=== PATIENT | female | born 1950 | race Caucasian/White ===

== ENCOUNTER 2018-09-08 07:19 | Inpatient (IN) ==
[2018-09-08] MEDS ORDERED: MORPHINE 4 MG/1 ML VIAL IV PRN (08:54)
[2018-09-08] MEDS ORDERED: ENOXAPARIN 30 MG/0.3 ML SYRINGE SUBCUT SCH (09:00)
[2018-09-08] MEDS: MIDAZOLAM 100 MG in SODIUM CHLORIDE 0.9% 80 ML IV PRN ×2 (09:30→21:41)
[2018-09-08 09:37] LABS: Allen Test Positive; Pt O2 Delivery Device Ventilator
[2018-09-08 09:38] LABS: ABG Base Excess 9.3 MMOL/L (-2.5-2.5); ABG HCO3 33.1 MMOL/L (20-26); ABG PCO2 52.4 MM HG (35-48); ABG PH 7.434 (7.35-7.45); ABG TCO2 31.7 MMOL/L (23-27)
[2018-09-08] MEDS: FAMOTIDINE 20 MG/2 ML VIAL IV SCH ×2 (09:42→21:02)
[2018-09-08] MEDS: MEROPENEM 500 MG in SODIUM CHLORIDE 0.9% 100 ML IV SCH ×2 (09:42→21:01)
[2018-09-08] MEDS: SODIUM CHLORIDE 0.9% 1,000 ML IV SCH ×2 (09:42→16:47)
[2018-09-08] MEDS: LEVOFLOXACIN INJ 750 MG in PREMIX 1 EACH IV SCH (10:00)
[2018-09-08 10:03] LABS: Basophils % 0.2 % (0.0-0.8); Hematocrit 32.6 VOL% (35.7-47.0); Immature Granulocytes % 1.2 %; Immature Granulocytes Absolute 0.14 #; Lymphocytes # 0.3 10*3/uL (1.4-4.0); Lymphocytes % 2.8 % (21.3-54.2); Mean Corpuscular HGB Conc 30.7 GM/DL (32-36); Mean Corpuscular Volume 88.8 FL (87-102); Mean Platelet Volume 8.6 FL (9.6-12.0); Monocytes % 4.3 % (1.7-12.7); Neutrophils % 91.5 % (38.7-73.9); Platelet Count 368 T/CUMM (130-400); Red Blood Count 3.67 MC/CUMM (3.8-5.5); Red Cell Distribution Width 12.5 % (9.3-17.3)
[2018-09-08 10:25] LABS: Albumin 2.1 G/DL (3.4-5.0); Bilirubin,Total 0.6 MG/DL (0.2-1.0); Calcium 8.2 MG/DL (8.5-10.1); Osmolality,Calculated 271.1 MOS/KG (273-304); Troponin I 0.037 NG/ML (0.00-0.045)
[2018-09-08 10:28] LABS: Band Neutrophils 3 % (0-10); Lymphocytes 2 % (20-55); Segmented Neutrophils 93 % (50-85); Total Cells Counted 100
[2018-09-08 10:30] LABS: Hypochromasia 1+
[2018-09-08 10:31] LABS: Microcytosis 1+; Platelet Estimate Normal
[2018-09-08] MEDS ORDERED: DEXTROSE 50% 25 GM/50 ML VIAL IV PRN (10:37)
[2018-09-08] MEDS ORDERED: GLUCAGON 1 MG VIAL IM PRN (10:37)
[2018-09-08] MEDS: ALBUTEROL 0.63 MG/3 ML NEB RESP TX SCH ×2 (12:24→19:22)
[2018-09-08] MEDS: methylPREDNISolone SOD SUC 40 MG/1 ML VIAL IV SCH ×2 (13:17→18:17)
[2018-09-08] MEDS: LACTULOSE 20 GM/30 ML UDCUP PO SCH ×2 (14:27→21:01)
[2018-09-08] MEDS: POTASSIUM CHLORIDE 20 MEQ/15 ML UDCUP PER TUBE SCH ×3 (14:27→21:18)
[2018-09-08] MEDS: INSULIN REGULAR 100 UNIT/ML SUBCUT SCH ×2 (18:04→23:44)
[2018-09-08] MEDS: CARBIDOPA/LEVODOPA 10-100 MG TABLET PO SCH (21:00)
[2018-09-09] MEDS: ALBUTEROL 0.63 MG/3 ML NEB RESP TX SCH ×4 (00:15→19:14)
[2018-09-09] MEDS: SODIUM CHLORIDE 0.9% 1,000 ML IV SCH ×2 (00:35→09:33)
[2018-09-09] MEDS: methylPREDNISolone SOD SUC 40 MG/1 ML VIAL IV SCH ×4 (01:21→19:00)
[2018-09-09] MEDS: POTASSIUM CHLORIDE 20 MEQ/15 ML UDCUP PER TUBE SCH (02:41)
[2018-09-09 03:56] LABS: Pt O2 Delivery Device Ventilator
[2018-09-09 03:58] LABS: ABG Base Excess 4.3 MMOL/L (-2.5-2.5); ABG HCO3 28.3 MMOL/L (20-26); ABG Oxygen Saturation 98.6 % (95-100); ABG PH 7.382 (7.35-7.45); ABG TCO2 27.6 MMOL/L (23-27)
[2018-09-09 04:39] LABS: Basophils % 0.2 % (0.0-0.8); Hematocrit 31.8 VOL% (35.7-47.0); Hemoglobin 9.6 GM/DL (12.0-16.0); Immature Granulocytes % 1.1 %; Immature Granulocytes Absolute 0.05 #; Lymphocytes # 0.5 10*3/uL (1.4-4.0); Lymphocytes % 9.6 % (21.3-54.2); Mean Corpuscular HGB Conc 30.2 GM/DL (32-36); Mean Corpuscular Volume 90.1 FL (87-102); Mean Platelet Volume 8.8 FL (9.6-12.0); Monocytes % 3.4 % (1.7-12.7); Neutrophils % 85.7 % (38.7-73.9); Platelet Count 335 T/CUMM (130-400); Red Blood Count 3.53 MC/CUMM (3.8-5.5); Red Cell Distribution Width 12.7 % (9.3-17.3); White Blood Count 4.7 T/CUMM (4-12)
[2018-09-09 05:08] LABS: Alanine Aminotransferase 75 U/L (13-56); Albumin 1.9 G/DL (3.4-5.0); Alkaline Phosphatase 324 U/L (45-117); Aspartate Amino Transferase 209 U/L (0-37); Blood Urea Nitrogen 15 MG/DL (7-18); Glucose 136 MG/DL (74-106); Osmolality,Calculated 285.1 MOS/KG (273-304); Total Protein 5.5 G/DL (6.4-8.3); Troponin I < 0.015 NG/ML (0.00-0.045)
[2018-09-09] MEDS: INSULIN REGULAR 100 UNIT/ML SUBCUT SCH ×3 (05:30→18:59)
[2018-09-09] MEDS ORDERED: IMMUNE GLOBULIN 10% 20 GM, IMMUNE GLOBULIN 10% 10 GM in PREMIX 1 EACH IV ONE (09:00)
[2018-09-09] MEDS: LEVOFLOXACIN INJ 750 MG in PREMIX 1 EACH IV SCH (09:27)
[2018-09-09] MEDS: MEROPENEM 500 MG in SODIUM CHLORIDE 0.9% 100 ML IV SCH ×2 (09:27→21:44)
[2018-09-09] MEDS: LACTULOSE 20 GM/30 ML UDCUP PO SCH ×2 (09:27→21:35)
[2018-09-09] MEDS: ENOXAPARIN 40 MG/0.4 ML SYRINGE SUBCUT SCH (09:27)
[2018-09-09] MEDS: FAMOTIDINE 20 MG/2 ML VIAL IV SCH ×2 (09:28→21:41)
[2018-09-09] MEDS ORDERED: MIDAZOLAM 2 MG/2 ML VIAL ONE (10:23)
[2018-09-09] MEDS ORDERED: fentaNYL 100 MCG/2 ML VIAL ONE (10:24)
[2018-09-09] MEDS ORDERED: MIDAZOLAM 2 MG/2 ML VIAL IV ONE (10:39)
[2018-09-09] MEDS ORDERED: fentaNYL 100 MCG/2 ML VIAL IV ONE (10:40)
[2018-09-09] MEDS: MIDAZOLAM 100 MG in SODIUM CHLORIDE 0.9% 80 ML IV PRN (11:59)
[2018-09-09] MEDS: fentaNYL INJ 1,250 MCG in SODIUM CHLORIDE 0.9% 225 ML IV PRN ×2 (11:59→21:59)
[2018-09-09] MEDS: CARBIDOPA/LEVODOPA 10-100 MG TABLET PO SCH (21:31)
[2018-09-10] MEDS: ALBUTEROL 0.63 MG/3 ML NEB RESP TX SCH ×4 (00:23→21:16)
[2018-09-10] MEDS: INSULIN REGULAR 100 UNIT/ML SUBCUT SCH ×4 (00:52→19:01)
[2018-09-10] MEDS: methylPREDNISolone SOD SUC 40 MG/1 ML VIAL IV SCH ×4 (00:55→19:02)
[2018-09-10] MEDS: MIDAZOLAM 100 MG in SODIUM CHLORIDE 0.9% 80 ML IV PRN ×2 (02:46→08:16)
[2018-09-10 03:06] LABS: ABG Base Excess 2.2 MMOL/L (-2.5-2.5); ABG HCO3 28.6 MMOL/L (20-26); ABG Oxygen Saturation 97.6 % (95-100); ABG PCO2 53.7 MM HG (35-48); ABG PH 7.344 (7.35-7.45); ABG PO2 114.3 MM HG (80-95); ABG TCO2 30.2 MMOL/L (23-27); Allen Test Positive; Pt O2 Delivery Device Ventilator
[2018-09-10 03:59] LABS: Basophils % 0.2 % (0.0-0.8); Hematocrit 32.3 VOL% (35.7-47.0); Hemoglobin 9.5 GM/DL (12.0-16.0); Immature Granulocytes % 6.8 %; Immature Granulocytes Absolute 0.32 #; Lymphocytes # 0.5 10*3/uL (1.4-4.0); Lymphocytes % 9.6 % (21.3-54.2); Mean Corpuscular HGB Conc 29.4 GM/DL (32-36); Mean Corpuscular Volume 91.5 FL (87-102); Mean Platelet Volume 8.9 FL (9.6-12.0); Monocytes % 4.3 % (1.7-12.7); Neutrophils % 79.1 % (38.7-73.9); Platelet Count 369 T/CUMM (130-400); Red Blood Count 3.53 MC/CUMM (3.8-5.5); Red Cell Distribution Width 13.2 % (9.3-17.3); White Blood Count 4.7 T/CUMM (4-12)
[2018-09-10 04:29] LABS: Calcium 8.1 MG/DL (8.5-10.1); Osmolality,Calculated 295.7 MOS/KG (273-304)
[2018-09-10 04:40] LABS: Band Neutrophils 2 % (0-10); Hypochromasia 1+; Lymphocytes 12 % (20-55); Platelet Estimate Increased; Segmented Neutrophils 83 % (50-85)
[2018-09-10 04:41] LABS: Burr Cells 2+; Reactive Lymphocytes Few; Total Cells Counted 100
[2018-09-10] MEDS: SODIUM CHLORIDE 0.9% 1,000 ML IV SCH (06:16)
[2018-09-10] MEDS: fentaNYL INJ 1,250 MCG in SODIUM CHLORIDE 0.9% 225 ML IV PRN ×2 (08:19→17:31)
[2018-09-10] MEDS: ENOXAPARIN 40 MG/0.4 ML SYRINGE SUBCUT SCH (09:03)
[2018-09-10] MEDS: FAMOTIDINE 20 MG/2 ML VIAL IV SCH ×2 (09:03→21:40)
[2018-09-10] MEDS: MEROPENEM 500 MG in SODIUM CHLORIDE 0.9% 100 ML IV SCH ×2 (09:08→22:45)
[2018-09-10] MEDS: LEVOFLOXACIN INJ 750 MG in PREMIX 1 EACH IV SCH (09:09)
[2018-09-10] MEDS: LACTULOSE 20 GM/30 ML UDCUP PO SCH (11:59)
[2018-09-10] MEDS: CARBIDOPA/LEVODOPA 10-100 MG TABLET PO SCH (21:41)
[2018-09-11] MEDS: INSULIN REGULAR 100 UNIT/ML SUBCUT SCH ×4 (00:02→17:40)
[2018-09-11] MEDS: methylPREDNISolone SOD SUC 40 MG/1 ML VIAL IV SCH ×4 (00:38→18:32)
[2018-09-11] MEDS: MIDAZOLAM 100 MG in SODIUM CHLORIDE 0.9% 80 ML IV PRN (00:40)
[2018-09-11] MEDS: fentaNYL INJ 1,250 MCG in SODIUM CHLORIDE 0.9% 225 ML IV PRN ×3 (00:56→17:15)
[2018-09-11] MEDS: ALBUTEROL 0.63 MG/3 ML NEB RESP TX SCH ×4 (01:27→19:21)
[2018-09-11 03:18] LABS: Allen Test Positive; Pt O2 Delivery Device Ventilator
[2018-09-11 03:20] LABS: ABG Base Excess 3.6 MMOL/L (-2.5-2.5); ABG HCO3 30.1 MMOL/L (20-26); ABG Oxygen Saturation 97.2 % (95-100); ABG PCO2 54.8 MM HG (35-48); ABG PH 7.357 (7.35-7.45); ABG PO2 105.8 MM HG (80-95); ABG TCO2 31.7 MMOL/L (23-27)
[2018-09-11 04:48] LABS: Calcium 8.6 MG/DL (8.5-10.1); Osmolality,Calculated 299.3 MOS/KG (273-304)
[2018-09-11 04:51] LABS: Basophils % 0.4 % (0.0-0.8); Hematocrit 34.8 VOL% (35.7-47.0); Hemoglobin 10.5 GM/DL (12.0-16.0); Immature Granulocytes % 6.6 %; Lymphocytes # 0.6 10*3/uL (1.4-4.0); Lymphocytes % 7.5 % (21.3-54.2); Mean Corpuscular HGB Conc 30.2 GM/DL (32-36); Mean Corpuscular Volume 90.9 FL (87-102); Mean Platelet Volume 8.9 FL (9.6-12.0); Monocytes % 3.3 % (1.7-12.7); Neutrophils % 82.2 % (38.7-73.9); Platelet Count 486 T/CUMM (130-400); Red Blood Count 3.83 MC/CUMM (3.8-5.5); Red Cell Distribution Width 13.5 % (9.3-17.3); White Blood Count 7.6 T/CUMM (4-12)
[2018-09-11] MEDS: SODIUM CHLORIDE 0.9% 1,000 ML IV SCH (05:12)
[2018-09-11 05:16] LABS: Band Neutrophils 5 % (0-10); Lymphocytes 12 % (20-55); Platelet Estimate Increased; Segmented Neutrophils 80 % (50-85); Total Cells Counted 100
[2018-09-11] MEDS ORDERED: LACTULOSE 20 GM/30 ML UDCUP PO SCH (09:00)
[2018-09-11] MEDS: SODIUM CHLORIDE 0.45% 1,000 ML IV SCH ×2 (09:09→22:39)
[2018-09-11] MEDS: LEVOFLOXACIN INJ 750 MG in PREMIX 1 EACH IV SCH (09:47)
[2018-09-11] MEDS: GENTAMICIN INJ 120 MG in PREMIX 1 EACH IV SCH ×2 (09:48→21:49)
[2018-09-11] MEDS: FAMOTIDINE 20 MG/2 ML VIAL IV SCH ×2 (09:48→20:25)
[2018-09-11] MEDS: ENOXAPARIN 40 MG/0.4 ML SYRINGE SUBCUT SCH (09:48)
[2018-09-11] MEDS: MEROPENEM 500 MG in SODIUM CHLORIDE 0.9% 100 ML IV SCH ×2 (09:52→20:31)
[2018-09-11] MEDS: INSULIN GLARGINE 100 UNIT/ML SUBCUT SCH (09:53)
[2018-09-11] MEDS: DEXMEDETOMIDINE 200 MCG in SODIUM CHLORIDE 0.9% 48 ML IV PRN ×3 (12:14→23:24)
[2018-09-11 16:48] LABS: ABG Base Excess 3.3 MMOL/L (-2.5-2.5); ABG HCO3 27.4 MMOL/L (20-26); ABG Oxygen Saturation 98.6 % (95-100); ABG PCO2 57.4 MM HG (35-48); ABG PH 7.334 (7.35-7.45); ABG TCO2 27.7 MMOL/L (23-27); Pt O2 Delivery Device Ventilator
[2018-09-11] MEDS: hydrALAZINE 20 MG/1 ML VIAL IV PRN (19:00)
[2018-09-11] MEDS: CARBIDOPA/LEVODOPA 10-100 MG TABLET PO SCH (20:22)
[2018-09-12] MEDS: methylPREDNISolone SOD SUC 40 MG/1 ML VIAL IV SCH ×4 (00:08→18:10)
[2018-09-12] MEDS: INSULIN REGULAR 100 UNIT/ML SUBCUT SCH ×5 (00:10→23:15)
[2018-09-12] MEDS: ALBUTEROL 0.63 MG/3 ML NEB RESP TX SCH ×4 (00:57→19:36)
[2018-09-12] MEDS: fentaNYL INJ 1,250 MCG in SODIUM CHLORIDE 0.9% 225 ML IV PRN ×3 (02:16→17:50)
[2018-09-12 03:22] LABS: ABG Base Excess 7.9 MMOL/L (-2.5-2.5); ABG HCO3 31.7 MMOL/L (20-26); ABG Oxygen Saturation 98.7 % (95-100); ABG PCO2 53.8 MM HG (35-48); ABG PH 7.411 (7.35-7.45); ABG TCO2 30.6 MMOL/L (23-27); Allen Test Positive; Pt O2 Delivery Device Ventilator
[2018-09-12] MEDS: DEXMEDETOMIDINE 200 MCG in SODIUM CHLORIDE 0.9% 48 ML IV PRN ×3 (04:44→23:12)
[2018-09-12 04:55] LABS: Basophils % 0.4 % (0.0-0.8); Hematocrit 34.5 VOL% (35.7-47.0); Hemoglobin 10.7 GM/DL (12.0-16.0); Immature Granulocytes % 8.3 %; Immature Granulocytes Absolute 0.68 #; Lymphocytes # 0.4 10*3/uL (1.4-4.0); Lymphocytes % 4.4 % (21.3-54.2); Mean Corpuscular Volume 89.4 FL (87-102); Mean Platelet Volume 8.7 FL (9.6-12.0); Monocytes % 5.3 % (1.7-12.7); Neutrophils % 81.6 % (38.7-73.9); Platelet Count 397 T/CUMM (130-400); Red Blood Count 3.86 MC/CUMM (3.8-5.5); Red Cell Distribution Width 13.2 % (9.3-17.3); White Blood Count 8.2 T/CUMM (4-12)
[2018-09-12 05:07] LABS: Calcium 8.5 MG/DL (8.5-10.1); Osmolality,Calculated 291.7 MOS/KG (273-304)
[2018-09-12 05:11] LABS: Prealbumin 17.9 MG/DL (20-40)
[2018-09-12 05:27] LABS: Band Neutrophils 1 % (0-10); Hypochromasia 1+; Lymphocytes 2 % (20-55); Microcytosis Slight; Myelocytes 1 %; Segmented Neutrophils 94 % (50-85); Total Cells Counted 100
[2018-09-12] MEDS: INSULIN GLARGINE 100 UNIT/ML SUBCUT SCH (09:35)
[2018-09-12] MEDS: ENOXAPARIN 40 MG/0.4 ML SYRINGE SUBCUT SCH (09:36)
[2018-09-12] MEDS: FAMOTIDINE 20 MG/2 ML VIAL IV SCH ×2 (09:37→22:03)
[2018-09-12] MEDS: GENTAMICIN INJ 120 MG in PREMIX 1 EACH IV SCH ×2 (09:55→22:04)
[2018-09-12] MEDS: MEROPENEM 500 MG in SODIUM CHLORIDE 0.9% 100 ML IV SCH ×2 (10:19→22:03)
[2018-09-12] MEDS: SODIUM CHLORIDE 0.45% 1,000 ML IV SCH ×2 (11:30→15:35)
[2018-09-12] MEDS: LEVOFLOXACIN INJ 750 MG in PREMIX 1 EACH IV SCH (13:20)
[2018-09-12] MEDS: CARBIDOPA/LEVODOPA 10-100 MG TABLET PO SCH (22:03)
[2018-09-13] MEDS: methylPREDNISolone SOD SUC 40 MG/1 ML VIAL IV SCH ×4 (00:28→18:36)
[2018-09-13] MEDS: ALBUTEROL 0.63 MG/3 ML NEB RESP TX SCH ×4 (00:37→19:50)
[2018-09-13] MEDS: fentaNYL INJ 1,250 MCG in SODIUM CHLORIDE 0.9% 225 ML IV PRN (00:37)
[2018-09-13 03:57] LABS: ABG Oxygen Saturation 99.3 % (95-100); ABG PCO2 51.4 MM HG (35-48); ABG PH 7.497 (7.35-7.45); ABG TCO2 34.7 MMOL/L (23-27); Allen Test Positive; Pt O2 Delivery Device Ventilator
[2018-09-13 05:03] LABS: Basophils % 0.3 % (0.0-0.8); Hematocrit 39.6 VOL% (35.7-47.0); Hemoglobin 12.5 GM/DL (12.0-16.0); Immature Granulocytes % 4.6 %; Immature Granulocytes Absolute 0.32 #; Lymphocytes # 0.4 10*3/uL (1.4-4.0); Lymphocytes % 5.7 % (21.3-54.2); Mean Corpuscular HGB Conc 31.6 GM/DL (32-36); Mean Corpuscular Volume 86.7 FL (87-102); Mean Platelet Volume 8.5 FL (9.6-12.0); Monocytes % 5.9 % (1.7-12.7); Neutrophils % 83.5 % (38.7-73.9); Platelet Count 353 T/CUMM (130-400); Red Blood Count 4.57 MC/CUMM (3.8-5.5); Red Cell Distribution Width 12.7 % (9.3-17.3)
[2018-09-13 05:23] LABS: Calcium 8.9 MG/DL (8.5-10.1); Osmolality,Calculated 283.5 MOS/KG (273-304)
[2018-09-13] MEDS: SODIUM CHLORIDE 0.45% 1,000 ML IV SCH (05:25)
[2018-09-13] MEDS: INSULIN REGULAR 100 UNIT/ML SUBCUT SCH ×3 (05:26→18:27)
[2018-09-13] MEDS: DEXMEDETOMIDINE 200 MCG in SODIUM CHLORIDE 0.9% 48 ML IV PRN (05:46)
[2018-09-13] MEDS: POTASSIUM CHLORIDE RIDER 20 MEQ in PREMIX 1 EACH IV PRN (06:19)
[2018-09-13] MEDS ORDERED: POTASSIUM CHLORIDE RIDER 10 MEQ in PREMIX 1 EACH IV PRN (06:20)
[2018-09-13] MEDS: FAMOTIDINE 20 MG/2 ML VIAL IV SCH ×2 (08:45→20:25)
[2018-09-13] MEDS: INSULIN GLARGINE 100 UNIT/ML SUBCUT SCH (08:45)
[2018-09-13] MEDS: ENOXAPARIN 40 MG/0.4 ML SYRINGE SUBCUT SCH (08:45)
[2018-09-13] MEDS: MEROPENEM 500 MG in SODIUM CHLORIDE 0.9% 100 ML IV SCH ×2 (08:46→20:43)
[2018-09-13] MEDS: ONDANSETRON 4 MG/2 ML VIAL IV PRN ×2 (09:00→22:11)
[2018-09-13] MEDS: LEVOFLOXACIN INJ 750 MG in PREMIX 1 EACH IV SCH (11:42)
[2018-09-13] MEDS: CARBIDOPA/LEVODOPA 10-100 MG TABLET PO SCH (20:24)
[2018-09-13] MEDS: GABAPENTIN 100 MG CAPSULE PO SCH (20:24)
[2018-09-13] MEDS: hydrALAZINE 20 MG/1 ML VIAL IV PRN (20:25)
[2018-09-13] MEDS ORDERED: traZODone 50 MG TABLET PO PRN (21:58)
[2018-09-14] MEDS: methylPREDNISolone SOD SUC 40 MG/1 ML VIAL IV SCH ×3 (00:02→18:46)
[2018-09-14] MEDS: INSULIN REGULAR 100 UNIT/ML SUBCUT SCH ×4 (00:16→19:10)
[2018-09-14] MEDS: ALBUTEROL 0.63 MG/3 ML NEB RESP TX SCH ×4 (01:50→19:56)
[2018-09-14] MEDS: SODIUM CHLORIDE 0.45% 1,000 ML IV SCH (07:22)
[2018-09-14] MEDS ORDERED: VENLAFAXINE XR 75 MG CAPSULE PO SCH (09:00)
[2018-09-14] MEDS: INSULIN GLARGINE 100 UNIT/ML SUBCUT SCH (09:14)
[2018-09-14] MEDS: FAMOTIDINE 20 MG/2 ML VIAL IV SCH (09:14)
[2018-09-14] MEDS: ENOXAPARIN 40 MG/0.4 ML SYRINGE SUBCUT SCH (09:14)
[2018-09-14] MEDS: MEROPENEM 500 MG in SODIUM CHLORIDE 0.9% 100 ML IV SCH ×2 (09:15→21:45)
[2018-09-14] MEDS: GABAPENTIN 100 MG CAPSULE PO SCH ×2 (09:15→21:45)
[2018-09-14] MEDS: LEVOFLOXACIN INJ 750 MG in PREMIX 1 EACH IV SCH (10:25)
[2018-09-14] MEDS: CARBIDOPA/LEVODOPA 10-100 MG TABLET PO SCH (21:45)
[2018-09-15] MEDS: ALBUTEROL 0.63 MG/3 ML NEB RESP TX SCH ×4 (00:59→19:17)
[2018-09-15] MEDS: INSULIN REGULAR 100 UNIT/ML SUBCUT SCH ×5 (01:07→23:26)
[2018-09-15] MEDS: SODIUM CHLORIDE 0.45% 1,000 ML IV SCH (04:41)
[2018-09-15 04:45] LABS: Calcium 8.8 MG/DL (8.5-10.1)
[2018-09-15 04:50] LABS: Prealbumin 18.1 MG/DL (20-40)
[2018-09-15] MEDS: methylPREDNISolone SOD SUC 40 MG/1 ML VIAL IV SCH ×2 (05:40→17:56)
[2018-09-15] MEDS: POTASSIUM CHLORIDE RIDER 20 MEQ in PREMIX 1 EACH IV PRN ×2 (07:10→09:29)
[2018-09-15] MEDS: INSULIN GLARGINE 100 UNIT/ML SUBCUT SCH (08:56)
[2018-09-15] MEDS: GABAPENTIN 100 MG CAPSULE PO SCH ×2 (09:30→20:45)
[2018-09-15] MEDS: EFFEXOR PO SCH (09:30)
[2018-09-15] MEDS: ENOXAPARIN 40 MG/0.4 ML SYRINGE SUBCUT SCH (09:30)
[2018-09-15] MEDS: MEROPENEM 500 MG in SODIUM CHLORIDE 0.9% 100 ML IV SCH (10:54)
[2018-09-15] MEDS: LEVOFLOXACIN INJ 750 MG in PREMIX 1 EACH IV SCH (11:40)
[2018-09-15] MEDS: CARBIDOPA/LEVODOPA 10-100 MG TABLET PO SCH (20:45)
[2018-09-16] MEDS: ALBUTEROL 0.63 MG/3 ML NEB RESP TX SCH ×4 (00:41→19:49)
[2018-09-16] MEDS: SODIUM CHLORIDE 0.45% 1,000 ML IV SCH (01:07)
[2018-09-16] MEDS: methylPREDNISolone SOD SUC 40 MG/1 ML VIAL IV SCH (05:40)
[2018-09-16] MEDS: INSULIN REGULAR 100 UNIT/ML SUBCUT SCH ×3 (05:42→18:23)
[2018-09-16 06:35] LABS: Basophils % 0.1 % (0.0-0.8); Eosinophils % 0.3 % (0.00-10.9); Hematocrit 36.5 VOL% (35.7-47.0); Hemoglobin 11.4 GM/DL (12.0-16.0); Immature Granulocytes % 0.9 %; Immature Granulocytes Absolute 0.07 #; Lymphocytes # 1.4 10*3/uL (1.4-4.0); Lymphocytes % 18.4 % (21.3-54.2); Mean Corpuscular HGB Conc 31.2 GM/DL (32-36); Mean Corpuscular Volume 87.1 FL (87-102); Mean Platelet Volume 9.4 FL (9.6-12.0); Monocytes % 9.9 % (1.7-12.7); Neutrophils % 70.4 % (38.7-73.9); Platelet Count 332 T/CUMM (130-400); Red Blood Count 4.19 MC/CUMM (3.8-5.5); Red Cell Distribution Width 12.9 % (9.3-17.3); White Blood Count 7.5 T/CUMM (4-12)
[2018-09-16 06:55] LABS: Calcium 8.6 MG/DL (8.5-10.1); Osmolality,Calculated 278.4 MOS/KG (273-304)
[2018-09-16] MEDS: INSULIN GLARGINE 100 UNIT/ML SUBCUT SCH (08:05)
[2018-09-16] MEDS: GABAPENTIN 100 MG CAPSULE PO SCH ×2 (08:06→21:05)
[2018-09-16] MEDS: EFFEXOR PO SCH (08:07)
[2018-09-16] MEDS: ENOXAPARIN 40 MG/0.4 ML SYRINGE SUBCUT SCH (08:08)
[2018-09-16] MEDS: VORICONAZOLE 200 MG TABLET PO SCH ×2 (15:15→21:04)
[2018-09-16] MEDS: CARBIDOPA/LEVODOPA 10-100 MG TABLET PO SCH (21:05)
[2018-09-17] MEDS: INSULIN REGULAR 100 UNIT/ML SUBCUT SCH ×3 (01:08→11:52)
[2018-09-17] MEDS: ALBUTEROL 0.63 MG/3 ML NEB RESP TX SCH ×2 (01:46→07:28)
[2018-09-17] MEDS: SODIUM CHLORIDE 0.45% 1,000 ML IV SCH (02:08)
[2018-09-17 05:29] LABS: Eosinophils # 0.2 10*3/uL (0.0-0.87); Hematocrit 35.8 VOL% (35.7-47.0); Hemoglobin 11.2 GM/DL (12.0-16.0); Immature Granulocytes % 0.7 %; Immature Granulocytes Absolute 0.05 #; Lymphocytes # 1.2 10*3/uL (1.4-4.0); Lymphocytes % 17.1 % (21.3-54.2); Mean Corpuscular HGB Conc 31.3 GM/DL (32-36); Mean Corpuscular Volume 87.5 FL (87-102); Mean Platelet Volume 9.3 FL (9.6-12.0); Neutrophils % 70.2 % (38.7-73.9); Platelet Count 310 T/CUMM (130-400); Red Blood Count 4.09 MC/CUMM (3.8-5.5); White Blood Count 6.8 T/CUMM (4-12)
[2018-09-17 05:54] LABS: Calcium 8.5 MG/DL (8.5-10.1); Osmolality,Calculated 281.1 MOS/KG (273-304)
[2018-09-17 08:20] VITALS: BP 105/63
[2018-09-17] MEDS: ENOXAPARIN 40 MG/0.4 ML SYRINGE SUBCUT SCH (08:58)
[2018-09-17] MEDS: GABAPENTIN 100 MG CAPSULE PO SCH (08:58)
[2018-09-17] MEDS: VORICONAZOLE 200 MG TABLET PO SCH (08:58)
[2018-09-17] MEDS: EFFEXOR PO SCH (08:59)
[2018-09-17] MEDS ORDERED: methylPREDNISolone SOD SUC 40 MG/1 ML VIAL IV SCH (09:00)
== END 2018-09-17 12:01 | disposition home or self-care (01) | DRG 207 ==
LOC: SUPCPDRO 08:45 → N.ICU 08:45 → SUATTDRO 08:45 → N.4E 09-14 16:12
PROVIDERS: ADMIT Internal Medicine; ATTEND Internal Medicine